=== PATIENT | male | born 1950 | race Caucasian/White ===

== ENCOUNTER 2021-04-07 02:38 | Emergency (ER) | payer MEDICARE ==
[~2021-04-07] VITALS: Ht 180.3 cm; Wt 97.9 kg
[2021-04-07] MEDS ORDERED: IPRATROPIUM/ALBUTEROL 0.5-3(2.5)MG/3ML NEB HHN ONE (04:45)
[2021-04-07] MEDS ORDERED: PREDNISONE 20MG TABLET PO ONE (04:45)
[2021-04-07 05:21] LABS: HEMATOCRIT. 40.1 % (42.0-52.0); HEMOGLOBIN. 13.4 g/dL (14.0-18.0); MEAN CORPUSCULAR HEMOGLOBIN 28.8 pg (28.0-32.0); MEAN CORPUSCULAR VOLUME 86.4 fL (80.0-94.0); MEAN PLATELET VOLUME 6.6 fl (7.4-10.4); PLATELET 206 x1000/uL (130-400); RED BLOOD CELL COUNT 4.64 mill/uL (4.7-6.1); RED CELL DISTRIBUTION WIDTH 13.5 % (11.6-14.6)
[2021-04-07 05:28] LABS: CHLORIDE 104 mEq/L (98-107)
[2021-04-07 06:16] LABS: PLATELET ESTIMATE NORMAL
[2021-04-07] MEDS ORDERED: IOHEXOL-350 100 ML BOTTLE ONE (08:52)
[2021-04-07] MEDS ORDERED: BENZ-16 PO (09:43)
[2021-04-07] MEDS ORDERED: P50 PO (09:43)
[2021-04-07] MEDS ORDERED: FLOV44 INH (09:43)
[2021-04-07] MEDS ORDERED: ALBU6.7H9 INH (09:43)
[2021-04-07 10:30] VITALS: BP 126/81
== END 2021-04-07 11:09 | disposition home or self-care (01) ==
LOC: ER 02:38
DX: J45.901 Unspecified asthma with (acute) exacerbation (principal); B34.9 Viral infection, unspecified; E78.00 Pure hypercholesterolemia, unspecified; Z90.49 Acquired absence of other specified parts of digestive tract; Z79.899 Other long term (current) drug therapy; Z20.822 Contact with and (suspected) exposure to COVID-19
CPT/HCPCS: 36415; 71045; 71275; 80053; 83880; 84484; 85025; 85379; 87426; 93005; 94640; 99285; J7512; Q9967